=== PATIENT | male | born 1955 | race Hispanic/Latino ===

== ENCOUNTER 2017-01-29 23:57 | Emergency (ER) | payer SELFPAY ==
[2017-01-30 00:54] LABS: Urine Drugs of Abuse Note Disclamer
[2017-01-30 01:13] LABS: Bilirubin,Urine NEG (Negative); Blood,Urine NEG (Negative); Ketones,Urine NEG (Negative); Leukocyte Esterase,Urine NEG (Negative); Nitrite,Urine NEG (Negative); Protein,Urine <15 mg/dL mg/dL (Negative); Urobilinogen,Urine < 2.0 mg/dL (<2.0); WBC,Urine < 1.0 /HPF (0.0-6.0)
[2017-01-30 01:43] LABS: Anion Gap 15 mmol/L; Blood Urea Nitrogen 6 mg/dL (9-20); Calcium 8.8 mg/dL (8.4-10.2); Carbon Dioxide 24 mmol/L (22-30); Chloride 108.2 mmol/L (98-107); Glucose 92 mg/dL (75-100); Potassium 3.3 mmol/L (3.6-5.0); Sodium 144 mmol/L (137-145)
[2017-01-30 02:16] LABS: Basophils % (Auto) 0.5 % (0.0-1.8); Hematocrit 44.8 % (35.5-45.6); Hemoglobin 14.4 gm/dl (11.8-15.2); Mean Corpuscular HGB Conc 32 % (32-34); Mean Corpuscular Hemoglobin 32 pg (28-32); Mean Corpuscular Volume 100 fl (84-94); Platelet Count 172 K/mm3 (140-440); Red Blood Count 4.47 M/mm3 (3.65-5.03); Red Cell Distribution Width 15.4 % (13.2-15.2); White Blood Count 7.6 K/mm3 (4.5-11.0)
[2017-01-30] MEDS ORDERED: K-DUR PO ONE (03:35)
[2017-01-30] MEDS ORDERED: BOOSTRIX IM ONE (03:54)
[2017-01-30] MEDS ORDERED: ATIVAN IM PRN (03:54)
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
[2017-01-30] MEDS ORDERED: HALDOL IM ONE (04:51)
[2017-01-30 05:43] LABS: Urine Drugs of Abuse Note Disclamer
[2017-01-30 05:49] LABS: Bilirubin,Urine NEG (Negative); Blood,Urine NEG (Negative); Ketones,Urine NEG (Negative); Leukocyte Esterase,Urine NEG (Negative); Mucus,Urine FEW /HPF; Nitrite,Urine NEG (Negative); Protein,Urine <15 mg/dL mg/dL (Negative); Urobilinogen,Urine < 2.0 mg/dL (<2.0)
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
--- NOTE | 2017-01-30 07:17 | XRay Report ---
Single view chest: Compared to 11/10/14. History: Chest pain. Findings: Cardiomegaly. Trachea is midline. No consolidation, pneumothorax or pleural effusion. Old right rib fractures and surgery. Impression: No acute cardiopulmonary findings.
[2017-01-30 11:38] VITALS: BP 143/93
== END 2017-01-30 11:50 | disposition home or self-care (01) ==
LOC: ED 23:57
DX: F10.10 Alcohol abuse, uncomplicated (principal); I25.2 Old myocardial infarction; F17.200 Nicotine dependence, unspecified, uncomplicated; Z88.5 Allergy status to narcotic agent; Z88.0 Allergy status to penicillin; Z91.018 Allergy to other foods
CPT/HCPCS: 36415; 70450; 71010; 72125; 80048; 80307; 81001; 83735; 84484; 85025; 90471; 90715; 93005; 93010; 96372; 99285; G0480; J1630; 80320

== ENCOUNTER 2018-06-19 18:56 | Emergency (ER) | payer OTHER ==
[2018-06-19 19:58] LABS: Basophils % (Auto) 0.7 % (0.0-1.8); Eosinophils # (Auto) 0.1 K/mm3 (0.0-0.4); Eosinophils % (Auto) 0.9 % (0.0-4.3); Lymphocytes # (Auto) 2.2 K/mm3 (1.2-5.4); Lymphocytes % (Auto) 40.2 % (13.4-35.0); Mean Corpuscular HGB Conc 37 % (32-34); Mean Corpuscular Hemoglobin 35 pg (28-32); Mean Corpuscular Volume 96 fl (84-94); Monocytes # (Auto) 0.4 K/mm3 (0.0-0.8); Monocytes % (Auto) 7.5 % (0.0-7.3); Platelet Count 154 K/mm3 (140-440); Red Blood Count 4.11 M/mm3 (3.65-5.03); Red Cell Distribution Width 15.3 % (13.2-15.2)
[2018-06-19 20:04] LABS: Bilirubin,Urine NEG (Negative); Blood,Urine NEG (Negative); Color,Urine Yellow (Yellow); Protein,Urine <15 mg/dL mg/dL (Negative); Urobilinogen,Urine < 2.0 mg/dL (<2.0); WBC,Urine < 1.0 /HPF (0.0-6.0)
[2018-06-19 20:07] LABS: Hematocrit 39.6 % (35.5-45.6); Hemoglobin 14.4 gm/dl (11.8-15.2)
[2018-06-19 20:09] LABS: Amphetamine Screen,Urine PRESUMPTIVE NEGATIVE; Benzodiazepines Screen,Urine PRESUMPTIVE NEGATIVE; Cannabinoid Screen,Urine PRESUMPTIVE NEGATIVE; Cocaine Screen,Urine PRESUMPTIVE NEGATIVE; Methadone Screen,Urine PRESUMPTIVE NEGATIVE; Opiate Screen,Urine PRESUMPTIVE NEGATIVE
[2018-06-19 20:11] LABS: INR 1.02 (0.87-1.13)
[2018-06-19 20:12] LABS: Partial Thromboplastin Time 29.4 Sec. (24.2-36.6)
[2018-06-19 20:15] LABS: Alanine Aminotransferase 95 units/L (7-56); Albumin 3.8 g/dL (3.9-5); BUN/Creatinine Ratio 15; Blood Urea Nitrogen 9 mg/dL (9-20); Calcium 8.5 mg/dL (8.4-10.2); Hemolysis Index 17; Lipase 29 units/L (13-60)
--- NOTE | 2018-06-19 23:13 | Emergency Department Report ---
ED General Adult HPI - General Chief complaint: Psych Stated complaint: N/V/ETOH Time Seen by Provider: 06/19/18 19:52 Source: patient, EMS Mode of arrival: Stretcher Limitations: No Limitations - History of Present Illness Initial comments: Patient presents to emergency department complaining of suicidal ideations. Patient is very short with words but states that he has been having suicidal thoughts that have increased lately with a plan of stepping into oncoming traffic. Patient denies any homicidal ideation or auditory/visual hallucinations -: Gradual Severity scale (0 -10): 0 Improves with: none Worsens with: none Associated Symptoms: denies other symptoms Treatments Prior to Arrival: none - Related Data Previous Rx's Medication Instructions Recorded Last Taken Type ALPRAZolam [Xanax TAB] 0.5 mg PO QID PRN #30 tablet 05/27/14 Unknown Rx Aspirin [Aspirin BABY CHEW TAB] 81 mg PO QDAY #30 tab.chew 05/27/14 Unknown Rx Lisinopril [Zestril TAB] 2.5 mg PO QDAY #30 tablet 05/27/14 Unknown Rx Metoprolol [Lopressor TAB] 6.25 mg PO BID #60 tablet 05/27/14 Unknown Rx Rosuvastatin (Nf) [Crestor] 20 mg PO QHS #30 tablet 05/27/14 Unknown Rx oxyCODONE /ACETAMINOPHEN [Percocet 1 tab PO Q4H PRN #20 tablet 05/27/14 Unknown Rx 5/325 mg] Allergies Allergy/AdvReac Type Severity Reaction Status Date / Time chicken derived Allergy Hives Verified 11/03/14 16:46 codeine Allergy Nausea Verified 11/03/14 16:46 Penicillins AdvReac Anaphylaxis Verified 11/03/14 16:46 ED Review of Systems ROS: Stated complaint: N/V/ETOH Other details as noted in HPI Comment: All other systems reviewed and negative Constitutional: denies: chills, fever Eyes: denies: eye pain, eye discharge, vision change ENT: denies: ear pain, throat pain Respiratory: denies: cough, shortness of breath, wheezing Cardiovascular: denies: chest pain, palpitations Endocrine: no symptoms reported Gastrointestinal: denies: abdominal pain, nausea, diarrhea Genitourinary: denies: urgency, dysuria Musculoskeletal: denies: back pain, joint swelling, arthralgia Skin: denies: rash, lesions Neurological: denies: headache, weakness, paresthesias Psychiatric: suicidal thoughts. denies: anxiety, depression, auditory hallucinations, visual hallucinations, homicidal thoughts Hematological/Lymphatic: denies: easy bleeding, easy bruising ED Past Medical Hx - Past Medical History Previous Medical History?: Yes Hx Heart Attack/AMI: Yes (with stent 2009) Additional medical history: Alcohol dependence, alcoholic liver disease - Surgical History Past Surgical History?: Yes Hx Coronary Stent: Yes - Social History Smoking Status: Current Every Day Smoker Substance Use Type: Alcohol - Medications Home Medications: Home Medications Medication Instructions Recorded Confirmed Last Taken Type ALPRAZolam [Xanax TAB] 0.5 mg PO QID PRN #30 tablet 05/27/14 01/27/17 Unknown Rx Aspirin [Aspirin BABY CHEW TAB] 81 mg PO QDAY #30 tab.chew 05/27/14 01/27/17 Unknown Rx Lisinopril [Zestril TAB] 2.5 mg PO QDAY #30 tablet 05/27/14 01/27/17 Unknown Rx Metoprolol [Lopressor TAB] 6.25 mg PO BID #60 tablet 05/27/14 01/27/17 Unknown Rx Rosuvastatin (Nf) [Crestor] 20 mg PO QHS #30 tablet 05/27/14 01/27/17 Unknown Rx oxyCODONE /ACETAMINOPHEN [Percocet 1 tab PO Q4H PRN #20 tablet 05/27/14 Unknown Rx 5/325 mg] ED Physical Exam - General Limitations: No Limitations General appearance: alert, in no apparent distress - Head Head exam: Present: atraumatic, normocephalic - Eye Eye exam: Present: normal appearance, PERRL, EOMI - ENT ENT exam: Present: mucous membranes moist - Neck Neck exam: Present: normal inspection - Respiratory Respiratory exam: Present: normal lung sounds bilaterally. Absent: respiratory distress, wheezes, rales, rhonchi - Cardiovascular Cardiovascular Exam: Present: regular rate, normal rhythm. Absent: systolic murmur, diastolic murmur, rubs, gallop - GI/Abdominal GI/Abdominal exam: Present: soft, normal bowel sounds - Rectal Rectal exam: Present: deferred - Extremities Exam Extremities exam: Present: normal inspection - Back Exam Back exam: Present: normal inspection - Neurological Exam Neurological exam: Present: alert, oriented X3, CN II-XII intact. Absent: motor sensory deficit - Psychiatric Psychiatric exam: Present: normal affect, normal mood - Skin Skin exam: Present: warm, dry, intact, normal color. Absent: rash ED Course Vital Signs 06/19/18 06/19/18 19:24 19:44 Temperature 98.2 F Pulse Rate 91 H Respiratory 20 20 Rate Blood Pressure 133/76 [Right] O2 Sat by Pulse 96 96 Oximetry ED Medical Decision Making - Lab Data Result diagrams: 06/19/18 19:34 06/19/18 19:34 - Medical Decision Making 1013 applied Critical care attestation.: If time is entered above; I have spent that time in minutes in the direct care of this critically ill patient, excluding procedure time. ED Disposition Clinical Impression: Suicidal ideations Disposition: [id number]/TX-[id number] PSY HOSP/PSY UNIT Is pt being admited?: No Does the pt Need Aspirin: No Condition: Stable Instructions: Suicide Prevention for Adults (ED) Referrals: PRIMARY CARE [Primary Care Provider] - 3-5 Days Time of Disposition: 02:13
[2018-06-20] MEDS ORDERED: LIBRIUM PO PRN (14:28)
[2018-06-20] MEDS ORDERED: ATIVAN IV PRN ×2 (14:28)
[2018-06-20] MEDS: LIBRIUM PO PRN (15:05)
[2018-06-21] MEDS: LIBRIUM PO PRN (09:00)
[2018-06-21] MEDS: ATIVAN IV PRN ×3 (12:34→20:50)
[2018-06-22] MEDS: ATIVAN IV PRN ×2 (00:39→16:50)
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
[2018-06-22] MEDS: REMERON PO SCH (22:26)
--- NOTE | 2018-06-23 12:43 | Progress Note ---
Subjective - Reason for Consult Consult date: 06/23/18 Reason for consult: Psychiatry Follow-up - Chief Complaint Chief complaint: "I feel a little better" 62 y.o. white male presenting to the ER for SI's. Today the patient is calm and cooperative during the assessment. He stated that he feels a little better, because he isn't in the same environment with his family. He stated, "When I'm around my family I get so depressed." He stated that his SI's has decreased. He stated resting well last night. He denies HI's and AVH's. He denies any side effects of his medication. Mental Status Exam - Vital signs Last Vital Signs Temp 98.8 F 06/22/18 22:09 Pulse 97 H 06/22/18 22:09 Resp 18 06/22/18 22:09 BP 147/93 06/22/18 22:09 Pulse Ox 97 06/22/18 22:09 - Exam Narrative exam: MSE: Appearance: calm, cooperative Behavior: regular eye contact Speech: regular rate and tone Mood: "okay" Affect: congruent to mood Thought Process: linear Thought Content: denies HI's and AVH's, passive SI's Motor Activity: ambulatory Cognition: A/O x 3 Insight: variable Judgment: variable Assessment and Plan Impression: MDD, Severe Type. Hx of PTSD. Alcohol Use DO. Alcohol Intoxication on admission. Today the patient is calm and cooperative during the assessment. The patient has passive SI's. Mild tremors noted (etoh). DDx: R/O Bipolar DO, Alcohol Induced Mood DO Recommendation/Plan: Continue 1013 with placement to inpatient psy services. Continue Remeron 15 mg PO HS for depression/PTSD. Discussed possible suicidality /medication induced malick with patient reference Remeron. Discusses generalized coping skills with patient. Discussed the importance to abstain from alcohol consumption (etoh).
[2018-06-23] MEDS: REMERON PO SCH (22:19)
--- NOTE | 2018-06-24 19:55 | Progress Note ---
Subjective - Reason for Consult Consult date: 06/24/18 Reason for consult: Psychiatric Follow-up Evaluation - Chief Complaint Chief complaint: "I'm feeling better" Patient is a 62 year old white male who presents to the ER for SI's. Today, the patient is calm and cooperative during the assessment. He reports " I'm feeling better. I'm around positive people, which gives me a good attitude towards life. " He reports good appetite and intermittent sleep. Although patient feels better he continues to endorse intermittent suicidal ideations. He denies HI, A/ VH, and delusions. He reports medication compliance. No side effects noted or reported. Mental Status Exam - Vital signs Last Vital Signs Temp 97.8 F 06/24/18 09:00 Pulse 70 06/24/18 09:00 Resp 16 06/24/18 09:00 BP 145/92 06/24/18 09:00 Pulse Ox 98 06/24/18 09:00 - Exam Narrative exam: Mental Status Exam General Appearance: Causally Dressed-hospital gown Eye Contact: Intermittent Orientation: Alert and oriented x 4 ( person, place, time, and situation) Attitude/Behavior: Cooperative, guarded, and evasive Sensorium: Distracted Psychomotor & Musculoskeletal Activity: Sitting up in bed Mood: "Better." Affect: Constricted Speech/Language: Regular rate and tone. Thought Processes: Circumstantial Thought Content: Reality oriented, logical Perception: Patient denies. Concentration/Attention: Impaired Suicidal Ideations/Plan: + suicidal ideations " I have the desire to let it all go" Homicidal Ideations/Plan: Patient denies. Insight: Poor Judgment: Poor Assessment and Plan Impression: MDD, Severe Type. Hx of PTSD. Alcohol Use DO. Alcohol Intoxication on admission. Today the patient is calm and cooperative during the assessment. Although patient has depressed mood his symptoms are improving. The patient has passive SI's. Mild tremors noted (etoh). He denies HI, A/VH, and delusions. DDx: R/O Bipolar DO, Alcohol Induced Mood DO Recommendation/Plan: 1. Continue 1013 with placement to inpatient psychiatric services. 2. Continue Remeron 15 mg PO HS for depression/PTSD. Discussed possible suicidality/medication induced malick with patient reference Remeron. Discusses generalized coping skills with patient. Discussed the importance to abstain from alcohol consumption (etoh). 3. Will continue to monitor mood, sleep, appetite, compliance, and side effects of medication.
[2018-06-24 20:26] VITALS: BP 142/92
== END 2018-06-24 20:00 ==
LOC: ED 18:56 → EEVIPCON 18:56 → ED 06-24 20:00
DX: F32.9 Major depressive disorder, single episode, unspecified (principal); I25.2 Old myocardial infarction; F17.200 Nicotine dependence, unspecified, uncomplicated; Z95.1 Presence of aortocoronary bypass graft; Z79.82 Long term (current) use of aspirin; Z88.6 Allergy status to analgesic agent; Z88.0 Allergy status to penicillin; Z91.018 Allergy to other foods
CPT/HCPCS: 36415; 80053; 80307; 81001; 83690; 85025; 85610; 85730; 86850; 86900; 86901; 93005; 93010; 96374; 96376; 99285; G0480; J2060; 80320